=== PATIENT | female | born 1990 | race Caucasian/White ===

== ENCOUNTER 2017-03-30 12:50 | Outpatient (CLI) | payer BC ==
[~2017-03-30] VITALS: Ht 170.2 cm; Wt 75.0 kg
[2017-03-30 13:00] VITALS: BP 128/80; PULSE 107; RESP 18; Ht 170.2 cm; Wt 75.0 kg
[2017-03-30] MEDS ORDERED: DIVA125T14 PO (13:07)
[2017-03-30] MEDS ORDERED: QUET25TA26 PO (13:07)
[2017-03-30] MEDS ORDERED: ATOM10CA PO (13:07)
[2017-03-30] MEDS ORDERED: GABA300C16 PO (13:07)
--- NOTE | 2017-03-30 13:36 | PN ---
Date/Time of Note Date/Time of Note DATE: 03/30/17 TIME: 13:22 Assessment/Plan Assessment/Plan Assessment/Plan [facility] Progress Note Date of Service: 03/30/17 Today's Impression & Plan: Overall improved after drainage of LLQ abscess. No indication for acute surgical intervention. Drain output minimal and abd wall completely benign. No evidence of ongoing abscess. Discussed options of keeping drain in one more week vs. d/c'ing it in the office today with slight risk of reaccumulation and abscess recurrence. Patient desired and agreed with d/c'd drain in the office, which we did without any difficulty. Answered all questions. 1. Cont antimicrobials for another 3-4 days and then stop 2. F/u with PCP 3. F/u with us prn; call with any questions/concerns Thank you very much for allowing us to participate in the care of this very nice patient and wonderful family. If there are any questions, please feel free to contact me at . Total visit time: 20 minutes, of which more than half was spent in [id number] discussion with the patient, possibly including time to discuss issues with family, as well as coordination of care with multiple other physicians and providers. Please note: Spelling or grammatical errors in this note are likely due to EHR/ dictation systems and are not reflective of patient care quality. Also please note that the dictation timestamp of this note does not necessarily reflected time of the visit for this service. Updated Clinical Summary: A very pleasant 27-year-old lady with comorbidities including BMI 25.6 as well as a few other medical issues, being admitted through the emergency department at [facility] with a left lower quadrant subcutaneous abscess and history of placement of a medication device 2 to 3 weeks earlier. S/ p perc drain placement via IR on 03/23/17 (Dr. Velez at [facility]). D/c home 03/25/17. One visit to ED [facility] 03/27/17 for purulent drainage from initial insertion point of the medication. Sent back home and no further purulent drainage from the site. COMORBIDITIES: 1. BMI 25.6. 2. Acute constipation. 3. Bipolar disorder, manic, moderate type 1. 4. Nicotine dependence. Cigarettes withdrawal. 5. History of polysubstance abuse. 6. History of placement of naltrexone implant placed about 2 to 3 weeks ago by [facility]. Subjective: No major events or complaints since ED visit on the . Reports feeling well. No abdominal pain complaints and no discharge from the initial insertion point of the medication, nor from the drain site. No N/V, SOB or CP. + bowel activity Objective: Vitals: reviewed; please also see EHR Physical Exam: Lungs: breathing comfortably without tachypnea; no audible wheezes, rales or rhonchi on gross exam Abd: Soft, non-tender, and non-distended; no peritoneal signs or guarding; drain with purulent output (minimal). Drain d/c'd at bedside without any issues. Skin: Appears pink and feels warm to touch. Neuro: Awake, alert and follows commands appropriately Exam/Review of Systems Vital Signs Vitals Vital Signs Date Time Temp Pulse Resp B/P Pulse Ox O2 Delivery O2 Flow Rate FiO2 03/30/17 13:00 98.5 107 18 128/80 97 Room Air SHEREE EDMOND M.D. Mar 30, 2017 13:33
== END 2017-03-30 16:24 | disposition home or self-care (01) ==
LOC: HPC 12:50
PROVIDERS: ATTEND Transplant Surgery
DX: Z48.817 Encounter for surgical aftercare following surgery on the skin and subcutaneous tissue (principal); F31.9 Bipolar disorder, unspecified; F17.200 Nicotine dependence, unspecified, uncomplicated; Z68.25 Body mass index [BMI] 25.0-25.9, adult; Z79.899 Other long term (current) drug therapy
CPT/HCPCS: G0463

== ENCOUNTER 2017-04-13 12:55 | Outpatient (CLI) | payer BC ==
[~2017-04-13] VITALS: Ht 170.2 cm; Wt 78.2 kg
[~2017-04-13 12:55] MED LIST: ATOM10CA PO; DIVA125T14 PO; GABA300C16 PO; QUET25TA26 PO
[2017-04-13 13:03] VITALS: BP 137/80; PULSE 125; RESP 18; Ht 170.2 cm; Wt 78.2 kg
--- NOTE | 2017-04-13 13:43 | PN ---
Date/Time of Note Date/Time of Note DATE: 04/13/17 TIME: 13:30 Assessment/Plan Assessment/Plan Assessment/Plan [facility] Progress Note Date of Service: 04/13/17 Today's Impression & Plan: Overall continuing to improve from abdominal wall abscess which is a result of a medication that was placed percutaneously, and then later had to be drained at [facility] as outlined in the summary below. Patient has had further drainage from the initial insertion site in the lower midline after removal of the drain in the office last week. Note that the drain site itself is completely clean and healed. I did not get a sense that there was active ongoing abscess that required further imaging or drainage. Since the skin opening of the original insertion site is open, we were able to pack this area with Nu Gauze and my hope is that with adequate time in care, that this area will heal on its own without further intervention. Patient still needs to follow-up with us short-term. I also wrote a prescription for antibiotics ( Augmentin 500 mg p.o. twice daily 7 days) so that the patient has this in case the symptoms worsen and she would require antimicrobial coverage. I asked her to call me before starting the antimicrobial if it ever came down to the. Answered all questions. 1. With 2 moist once or twice a day dressing change of the open wound 2. F/u with PCP 3. F/u with us in 1 week; call if any worsening of symptoms or if any questions Thank you very much for allowing us to participate in the care of this very nice patient and wonderful family. If there are any questions, please feel free to contact me at . Please note: Spelling or grammatical errors in this note are likely due to EHR/ dictation systems and are not reflective of patient care quality. Also please note that the dictation timestamp of this note does not necessarily reflected time of the visit for this service. Updated Clinical Summary: A very pleasant 27-year-old lady with comorbidities including BMI 25.6 as well as a few other medical issues, being admitted through the emergency department at [facility] with a left lower quadrant subcutaneous abscess and history of placement of a medication device 2 to 3 weeks earlier. S/ p perc drain placement via IR on 03/23/17 (Dr. Velez at [facility]). D/c home 03/25/17. One visit to ED [facility] 03/27/17 for purulent drainage from initial insertion point of the medication. Sent back home and no further purulent drainage from the site. Drain discontinued in the office on 03/30/2017. Further drainage noted from the initial insertion site of the medication in the lower midline on 2016, prompting another office visit. Wound packed with Nu Gauze in the office. COMORBIDITIES: 1. BMI 25.6. 2. Acute constipation. 3. Bipolar disorder, manic, moderate type 1. 4. Nicotine dependence. Cigarettes withdrawal. 5. History of polysubstance abuse. 6. History of placement of naltrexone implant placed about 2 to 3 weeks ago by [employer]. Subjective: No major events or complaints other than above drainage from the original insertion site which was noted yesterday and today. Reports otherwise feeling well. No abdominal pain complaints and no fevers or chills. No N/V, SOB or CP. + bowel activity Objective: Vitals: reviewed; please also see EHR Physical Exam: Lungs: breathing comfortably without tachypnea; no audible wheezes, rales or rhonchi on gross exam Abd: Soft, non-tender, and non-distended; no peritoneal signs or guarding; drain site completely healed. There is purulent serosanguineous drainage from the initial insertion site of the medication in the lower midline area. The skin was opened a few millimeters and we were able to pack it with Nu Gauze in the office without any difficulty. Skin: Appears pink and feels warm to touch. Neuro: Awake, alert and follows commands appropriately Exam/Review of Systems Vital Signs Vitals Vital Signs Date Time Temp Pulse Resp B/P Pulse Ox O2 Delivery O2 Flow Rate FiO2 04/13/17 13:03 98.3 125 18 137/80 98 Room Air SHEREE EDMOND M.D. Apr 13, 2017 13:42
== END 2017-04-13 16:14 | disposition home or self-care (01) ==
LOC: HPC 12:55
PROVIDERS: ATTEND Transplant Surgery
DX: L02.211 Cutaneous abscess of abdominal wall (principal); K59.00 Constipation, unspecified; F30.9 Manic episode, unspecified; Z72.0 Tobacco use
CPT/HCPCS: G0463

== ENCOUNTER 2017-12-27 11:59 | Emergency (ER) | END 2017-12-27 13:38 | disposition left against medical advice (07) ==